=== PATIENT | female | born 1970 | race Caucasian/White ===

== ENCOUNTER → 2018-07-07 | Outpatient (CLI) | payer BC ==
[~2018-07-07] MED LIST: PROHANCE 279.3MG/ML 5ML VIAL (A9576) As Ordered
== END ==
LOC: M RAD 15:59
DX: G35 Multiple sclerosis (principal)
CPT/HCPCS: A9576

== ENCOUNTER → 2019-10-17 | Outpatient (REF) | payer BC | LOC: M LAB LCGH 09:47 | PROVIDERS: ATTEND Surgery | DX: D64.9 Anemia, unspecified (principal) ==